=== PATIENT | male | born 1995 | race Caucasian/White ===

== ENCOUNTER 2018-05-03 14:39 | Emergency (ER) | payer SELFPAY ==
[2018-05-03] MEDS ORDERED: DIVALPROEX SODIUM 250 MG TABLET.DR PO ONE ×2 (15:17→15:20)
--- NOTE | 2018-05-03 15:19 | ER Document Report ---
ED Medical Screen (RME) - General Chief Complaint: Seizure Stated Complaint: POSSIBLE SEIZURE Time Seen by Provider: 05/03/18 15:10 Notes: 22-year-old male patient with history seizure disorder, has been out of his Depakote for just over a month. He got laid off from his job and has been unable to afford his medication. He was taking 3 Depakote extended release 250 mg tablets at bedtime on a daily basis. He had a seizure at home about 30 minutes prior to arrival. At this time he is a little drowsy with a mild headache. He denies injury with the seizure. TRAVEL OUTSIDE OF THE [place] IN LAST 30 DAYS: No - Related Data Allergies/Adverse Reactions: No Known Allergies Allergy (Unverified 05/03/18 14:41) Past Medical History - Social History Chew tobacco use (# tins/day): No Frequency of alcohol use: Occasional Drug Abuse: None Neurological Medical History: Reports: Hx Seizures Renal/ Medical History: Denies: Hx Peritoneal Dialysis Physical Exam - Vital signs Vitals: Temp Pulse Resp BP Pulse Ox 98.6 F 99 18 130/79 H 97 05/03/18 14:49 05/03/18 14:49 05/03/18 14:49 05/03/18 14:49 05/03/18 14:49 Course - Vital Signs Vital signs: Temp Pulse Resp BP Pulse Ox 98.6 F 99 18 130/79 H 97 05/03/18 14:49 05/03/18 14:49 05/03/18 14:49 05/03/18 14:49 05/03/18 14:49
[2018-05-03] MEDS ORDERED: LORAZEPAM INJ 2 MG/1 ML VIAL IV ONE (16:31)
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
[2018-05-03 17:34] VITALS: BP 117/65
== END 2018-05-03 17:34 | disposition home or self-care (01) ==
LOC: ER 14:39
DX: R56.9 Unspecified convulsions (principal); T42.6X6A Underdosing of other antiepileptic and sedative-hypnotic drugs, initial encounter; Z91.128 Patient's intentional underdosing of medication regimen for other reason; Z91.14 Patient's other noncompliance with medication regimen; R25.3 Fasciculation; F17.210 Nicotine dependence, cigarettes, uncomplicated
CPT/HCPCS: 99284; 96374; J2060

== ENCOUNTER 2018-05-06 09:44 | Emergency (ER) | payer SELFPAY ==
[2018-05-06 09:50] VITALS: BP 137/86
[2018-05-06] MEDS ORDERED: DEXAMETHASONE SOD PHOS INJ 10 MG/1 ML VIAL IM ONE (09:55)
[2018-05-06] MEDS ORDERED: VALPROATE SODIUM SYRUP 250 MG/5 ML UDCUP PO ONE (09:56)
--- NOTE | 2018-05-06 09:57 | ER Document Report ---
ED Medical Screen (RME) - General Chief Complaint: Fever Stated Complaint: FEVER Time Seen by Provider: 05/06/18 09:55 TRAVEL OUTSIDE OF THE [place] IN LAST 30 DAYS: No - HPI Notes: 05/06/18 09:56 Sore throat fever since Sunday last seizure was Sunday on Depakote 250 states unable to take this at this time because of the pain in the throat states possible sick contacts no recent antibiotics - Related Data Allergies/Adverse Reactions: No Known Allergies Allergy (Verified 05/06/18 09:47) Past Medical History - Social History Frequency of alcohol use: None Drug Abuse: None Neurological Medical History: Reports: Hx Seizures Renal/ Medical History: Denies: Hx Peritoneal Dialysis Review of Systems - Review of Systems Constitutional: Fever Neurological/Psychological: Seizure Physical Exam - Vital signs Vitals: Temp Pulse Resp BP Pulse Ox 99.4 F 100 16 137/86 H 98 05/06/18 09:49 05/06/18 09:49 05/06/18 09:49 05/06/18 09:49 05/06/18 09:49 - Respiratory Respiratory status: No respiratory distress Chest status: Nontender Breath sounds: Normal Chest palpation: Normal - Cardiovascular Rhythm: Regular Heart sounds: Normal auscultation Course - Vital Signs Vital signs: Temp Pulse Resp BP Pulse Ox 99.4 F 100 16 137/86 H 98 05/06/18 09:49 05/06/18 09:49 05/06/18 09:49 05/06/18 09:49 05/06/18 09:49
--- NOTE | 2018-05-06 10:20 | ER Document Report ---
ED General - General Chief Complaint: Fever Stated Complaint: FEVER Time Seen by Provider: 05/06/18 09:55 Notes: Patient is a 22-year-old male with seizure disorder that presents to the emergency department for chief complaint of sore throat and fever. Patient reports has been having a sore throat for approximately 3 days, he has been unable to take down much liquid or food because of it. He is also not been taking his antiepileptic medication Depakote that he is on he did have a seizure this past Sunday and was seen in the emergency department at that time. He states that he has not been pates that is why he does not have his medication. He has not had any further seizures from his discharge. His main complaint today is his sore throat. Reports a fever of 103 F at home, but is currently afebrile in the emergency department. Denies noting any cough, chest pain, shortness of breath, nausea or vomiting. Past Medical History: Epilepsy Past Surgical History: Tonsillectomy Social History: Admits to tobacco use, rare alcohol use, denies illicit drug use Family History: Reviewed and noncontributory for presenting illness Allergies: Reviewed, see documented allergy list. REVIEW OF SYSTEMS: Unless otherwise stated in this report the patient's positive and negative responses for review of systems for constitutional, eyes, ENT, cardiovascular, respiratory, gastrointestinal, neurological, genitourinary, musculoskeletal, and integumentary systems and related systems to the presenting problem are either as stated in the HPI or were not pertinent or were negative for the symptoms and/or complaints related to the presenting medical problem. PHYSICAL EXAMINATION: Vital signs reviewed, nursing noted reviewed. GENERAL: Well-appearing, well-nourished and in no acute distress. HEAD: Atraumatic, normocephalic. EYES: Eyes appear normal, extraocular movements intact, sclera anicteric, conjunctiva are normal. ENT: nares patent, tonsils are absent, palatal petechiae noted, and posterior oropharynx erythema. Moist mucous membranes. NECK: Normal range of motion, bilateral anterior tender cervical lymphadenopathy LUNGS: Breath sounds clear to auscultation bilaterally and equal. No wheezes rales or rhonchi. HEART: Regular rate and rhythm without murmurs ABDOMEN: Soft, nontender, normoactive bowel sounds. No rebound, guarding, or rigidity. No masses appreciated. EXTREMITIES: Nontender, good range of motion, no pitting or edema. NEUROLOGICAL: No focal neurological deficits. Moves all extremities spontaneously Motor and sensory grossly intact on exam. PSYCH: Normal mood, normal affect. SKIN: Warm, Dry, normal turgor, no rashes or lesions noted on exposed skin TRAVEL OUTSIDE OF THE [place] IN LAST 30 DAYS: No - Related Data Allergies/Adverse Reactions: No Known Allergies Allergy (Verified 05/06/18 09:47) Past Medical History - Social History Smoking Status: Current Every Day Smoker Frequency of alcohol use: None Drug Abuse: None Family History: Reviewed & Not Pertinent Patient has suicidal ideation: No Patient has homicidal ideation: No Neurological Medical History: Reports: Hx Seizures Renal/ Medical History: Denies: Hx Peritoneal Dialysis Physical Exam - Vital signs Vitals: Temp Pulse Resp BP Pulse Ox 99.4 F 100 16 137/86 H 98 05/06/18 09:49 05/06/18 09:49 10 09:49 05/06/18 09:49 05/06/18 09:49 Course - Re-evaluation Re-evalutation: Patient seen and examined vital signs reviewed. Laboratory data and imaging were ordered as appropriate for the patient's presenting symptoms and complaint, with consideration of any critical or life threatening conditions that may be associated with their obtained history and exam as noted above. Patient was treated with IM Decadron, and given a dose of his home Depakote Results were reviewed when available and demonstrated unremarkable CBC and BMP , Depakote level was undetectable, mono negative, strep negative and sent for culture The patient was re-evaluated and was stable, advised Chloraseptic [place], and advised the patient will follow up with him if his culture is positive, and prescribe antibiotics, he was educated that he needs to get his prescription filled for his Depakote, to follow-up with his primary care physician as well. Evaluation was most consistent with acute pharyngitis Results were discussed with the patient at this point, after careful consideration I feel that that patient can be discharged from the emergency department, the patient was educated treatments and reasons to return to the emergency department based on their presumed diagnosis as noted above, they were advised to followup with a primary care physician in 2-3 days. Patient was agreeable to plan of care. *Note is created using voice recognition software and may contain spelling, syntax or grammatical errors. Laboratory 05/06/18 05/06/18 05/06/18 09:55 10:03 10:03 WBC 6.5 RBC 5.17 Hgb 16.6 Hct 48.0 MCV 93 MCH 32.0 MCHC 34.5 RDW 12.2 Plt Count 158 Seg Neutrophils % 71.3 Lymphocytes % 14.1 Monocytes % 13.1 H Eosinophils % 1.3 Basophils % 0.2 Absolute Neutrophils 4.6 Absolute Lymphocytes 0.9 Absolute Monocytes 0.8 Absolute Eosinophils 0.1 Absolute Basophils 0.0 Sodium 143.0 Potassium 4.0 Chloride 102 Carbon Dioxide 28 Anion Gap 13 BUN 13 Creatinine 1.14 Est GFR ( Amer) > 60 Est GFR (Non-Af Amer) > 60 Glucose 120 H Calcium 10.2 Valproic Acid < 10.0 L Monotest Group A Strep Rapid NEGATIVE 05/06/18 10:03 WBC RBC Hgb Hct MCV MCH MCHC RDW Plt Count Seg Neutrophils % Lymphocytes % Monocytes % Eosinophils % Basophils % Absolute Neutrophils Absolute Lymphocytes Absolute Monocytes Absolute Eosinophils Absolute Basophils Sodium Potassium Chloride Carbon Dioxide Anion Gap BUN Creatinine Est GFR ( Amer) Est GFR (Non-Af Amer) Glucose Calcium Valproic Acid Monotest NEGATIVE Group A Strep Rapid - Vital Signs Vital signs: Temp Pulse Resp BP Pulse Ox 99.4 F 100 16 137/86 H 98 05/06/18 09:49 05/06/18 09:49 05/06/18 09:49 05/06/18 09:49 05/06/18 09:49 - Laboratory Result Diagrams: 05/06/18 10:03 05/06/18 10:03 Laboratory results interpreted by me: 05/06/18 05/06/18 10:03 10:03 Monocytes % 13.1 H Glucose 120 H Valproic Acid < 10.0 L Discharge - Discharge Clinical Impression: Acute pharyngitis Qualifiers: Pharyngitis/tonsillitis etiology: unspecified etiology Qualified Code(s): J02.9 - Acute pharyngitis, unspecified Condition: Stable Disposition: HOME, SELF-CARE Additional Instructions: Please return to the emergency department if you have any worsening, or concern of your symptoms. Please return to the emergency department if you develop chest pain, difficulty breathing, severe abdominal pain, or ongoing vomiting. Please follow-up with your primary care physician in 2-3 days and any other recommended physicians. If prescribed, take all medications as directed. If you have any questions or concerns do not hesitate to return the emergency department for evaluation. Sore Throat Sore throats may be caused by viruses, bacteria, or fungi. Most are due to a virus, and must get better on their own. Bacterial sore throats, particularly those due to "strep," need treatment with antibiotics. If an antibiotic is prescribed, be sure to take the medication for a full 10 days. Failure to take the antibiotic can result in complications such as rheumatic fever. Sometimes, an injection of antibiotics is given instead of pills or liquid. This single "shot" is equal in effectiveness to the oral medication. To relieve symptoms, take acetaminophen for pain. Sip clear liquids frequently, or eat popsicles or ice chips. Anesthetic sprays or lozenges may help. Make sure the air in the room is not too dry. Avoid using decongestants or antihistamines. Call the doctor if there is no improvement in two days, or if you have difficulty breathing, increasing throat pain, high fever, rash, or frequent vomiting. Prescriptions: Benzonatate [Tessalon Perle 100 mg Capsule] 100 mg PO Q8HP PRN #15 cap PRN Reason: Forms: Return to Work Referrals: [facility] [Provider Group] - Follow up in 3-5 days (or your primary care. ) [facility] [Provider Group] - Follow up in 3-5 days
[2018-05-06 10:29] LABS: ABSOLUTE EOSINOPHILS # (AUTO) 0.1 10^3/uL (0.0-0.6); ABSOLUTE LYMPHOCYTES (AUTO) 0.9 10^3/uL (0.5-4.7); ABSOLUTE MONOCYTES (AUTO) 0.8 10^3/uL (0.1-1.4); ABSOLUTE NEUT (AUTO) 4.6 10^3/uL (1.7-8.2); BASOPHILS % (AUTO) 0.2 % (0-2); EOSINOPHILS % (AUTO) 1.3 % (0-6); HEMOGLOBIN 16.6 g/dL (13.5-17.0); LYMPHOCYTES % (AUTO) 14.1 % (13-45); MEAN CORPUSCULAR HGB CONC 34.5 g/dL (32.0-36.0); MEAN CORPUSCULAR VOLUME 93 fl (80-97); MONOCYTES % (AUTO) 13.1 % (3-13); PLATELET COUNT 158 10^3/uL (150-450); RED BLOOD COUNT 5.17 10^6/uL (4.35-5.55); RED CELL DISTRIBUTION WIDTH 12.2 % (11.5-14.0); SEGMENTED NEUTROPHILS % (AUTO) 71.3 % (42-78); TOTAL CELLS COUNTED % (AUTO) 100 %; WHITE BLOOD COUNT 6.5 10^3/uL (4.0-10.5)
[2018-05-06 10:42] LABS: ANION GAP 13 (5-19); BLOOD UREA NITROGEN 13 mg/dL (7-20); CALCIUM 10.2 mg/dL (8.4-10.2); CARBON DIOXIDE 28 mmol/L (22-30); CHLORIDE 102 mmol/L (98-107); GLUCOSE 120 mg/dL (75-110)
== END 2018-05-06 11:04 | disposition home or self-care (01) ==
LOC: ER 09:44
DX: J02.9 Acute pharyngitis, unspecified (principal); G40.909 Epilepsy, unspecified, not intractable, without status epilepticus; T42.6X6A Underdosing of other antiepileptic and sedative-hypnotic drugs, initial encounter; Z91.128 Patient's intentional underdosing of medication regimen for other reason; Z91.14 Patient's other noncompliance with medication regimen; F17.200 Nicotine dependence, unspecified, uncomplicated
CPT/HCPCS: 99283; 96372; 36415; 87070; 87880; 85025; 86308; 80048; 80164; J1100

== ENCOUNTER 2018-05-07 16:07 | Emergency (ER) | payer SELFPAY ==
[2018-05-07] MEDS ORDERED: MAG HYDROX/AL HYDROX/SIMETH SUSP 30 ML UDCUP PO ONE (16:51)
[2018-05-07] MEDS ORDERED: METOCLOPRAMIDE HCL ORAL SOLN 10 MG/10 ML UDCUP PO ONE (16:51)
[2018-05-07] MEDS ORDERED: LIDOCAINE 2% VISCOUS SOLN 20 ML UDCUP PO ONE (16:51)
--- NOTE | 2018-05-07 16:56 | ER Document Report ---
HPI - HPI Pain Level: 5 Notes: Patient is a 22-year-old male with a history of seizures who presents to the ED complaining of worsening sore throat from yesterday's visit with subjective fevers. Patient states that every time he swallows he feels like his throat is closing and he has trouble breathing with it. Patient states that he tried the [id number] medicine with minimal relief. He was evaluated yesterday and had an unremarkable workup at that time. Patient is requesting imaging. Denies any drug allergies. He has a surgical history of a tonsillectomy. Denies any headache, head injury, neck pain, changes in vision/speech/mentation/ hearing, URI, chest pain, palpitations, syncope, cough, shortness of breath, wheeze, dyspnea, abdominal pain, nausea/vomiting/diarrhea, urinary retention, dysuria, hematuria, or rash. - ROS Systems Reviewed and Negative: Yes All other systems reviewed and negative Past Medical History - Social History Smoking Status: Unknown if Ever Smoked Family History: Reviewed & Not Pertinent Neurological Medical History: Reports: Hx Seizures Renal/ Medical History: Denies: Hx Peritoneal Dialysis Vertical Provider Document - CONSTITUTIONAL Agree With Documented VS: Yes Notes: PHYSICAL EXAMINATION: GENERAL: Well-appearing, well-nourished and in no acute distress. A&Ox4. Answers questions appropriately. Moves comfortably w/o notable distress HEAD: Atraumatic, normocephalic. EYES: Pupils equal round and reactive to light, extraocular movements intact, sclera anicteric, conjunctiva are normal. ENT: EAC clear b/l. TM's intact b/l without erythema, fluid, or perforation. Nares patent and with clear discharge. oropharynx mild erythema without exudates. tonsils absent. No palatine shift. Uvula midline. No tongue protrusion. No drooling, hoarseness, or airway compromise. Moist mucous membranes. No sinus tenderness. NECK: Normal range of motion, supple with tender small ant. cerv. chain lymphadenopathy. No rigidity/meningismus. LUNGS: Breath sounds clear to auscultation bilaterally and equal. No wheezes rales or rhonchi. No retractions HEART: Regular rate and rhythm without murmurs, rubs, gallops. ABDOMEN: Soft, nontender, nondistended abdomen. No guarding, no rebound. No masses appreciated. Normal bowel sounds present. No CVA tenderness bilaterally. No hepatosplenomegaly. NEUROLOGICAL: Normal speech, normal gait. Normal sensory, motor exams PSYCH: Normal mood, normal affect. SKIN: Warm, Dry, normal turgor, no rashes or lesions noted. - INFECTION CONTROL TRAVEL OUTSIDE OF THE [place] IN LAST 30 DAYS: No Course - Re-evaluation Re-evalutation: 05/07/18 17:14 Due to patient bounce-back: Dr. Kidd was consulted who recommends CT soft tissue neck and possible antibiotic treatment thereafter for adenitis. GI cocktail, cbc, and bmp ordered. Pt in agreement with plan. 05/07/18 19:11 Patient is an afebrile, well-hydrated, 22-year-old male who presents to the ED with adenitis and acute pharyngitis. Vitals are acceptable without any significant tachycardia, tachypnea, or hypoxia. PE is otherwise unremarkable. Patient is nontoxic-appearing and is tolerating p.o. without any difficulties. Throat culture from yesterday shows preliminary of normal rico. CBC, CMP unremarkable. CT scan of the neck was unremarkable for any acute pathology. GI cocktail did help with his symptoms. No other labs or imaging warranted at this time. Low suspicion for any meningitis, sepsis, peritonsillar/pharyngeal abscess, respiratory compromise, Hector's, or other emergent systemic condition at this time. Patient is aware this condition can change from initial presentation and he needs to monitor symptoms closely. I will send him home with a prescription for amoxicillin for the adenitis as reviewed with Dr Kidd as well as magic mouthwash. Conservative measures otherwise for symptoms. Recheck with your PCM in 2-3 days. Return to the ED with any worsening/concerning symptoms otherwise as reviewed in discharge. Patient is in agreement. - Vital Signs Vital signs: Temp Pulse Resp BP Pulse Ox 99.8 F 80 16 131/75 H 100 05/07/18 16:16 05/07/18 16:16 05/07/18 16:16 05/07/18 16:16 05/07/18 16:16 - Laboratory Result Diagrams: 05/07/18 17:47 05/07/18 17:47 Discharge - Discharge Clinical Impression: Adenitis, acute Acute pharyngitis Qualifiers: Pharyngitis/tonsillitis etiology: unspecified etiology Qualified Code(s): J02.9 - Acute pharyngitis, unspecified Condition: Stable Disposition: HOME, SELF-CARE Instructions: Sore Throat ([facility]) Additional Instructions: Maintain adequate fluid intake Take meds as directed Salt water gargles, throat sprays, mouthwash rinse, peroxide gargles tylenol/ibuprofen as needed New toothbrush tomorrow evening over the counter cold medication as needed for symptoms F/u: with your PCM in 2-3 days for a recheck Consider consult with ENT for ongoing/worsening symptoms Return to the ED with any fever, worsening pain, chest pain, neck pain/stiffness , shortness of breath, cough, drooling, trouble swallowing/breathing, abdominal pain, n/v/d, rash, or worsening/concerning symptoms otherwise. Prescriptions: Amoxicillin 1 tab PO TID #30 tab Nystatin/Dexameth/Diphen [Magic Mouthwash ([facility] Formula) Susp] 5 ml PO QID #120 ml Forms: Elevated Blood Pressure Referrals: JULIA DELACRUZ DO [ASSOCIATE] - Follow up as needed
[2018-05-07 17:58] LABS: ABSOLUTE LYMPHOCYTES (AUTO) 1.4 10^3/uL (0.5-4.7); ABSOLUTE MONOCYTES (AUTO) 0.8 10^3/uL (0.1-1.4); ABSOLUTE NEUT (AUTO) 4.1 10^3/uL (1.7-8.2); BASOPHILS % (AUTO) 0.4 % (0-2); EOSINOPHILS % (AUTO) 0.7 % (0-6); HEMATOCRIT 47.8 % (37.9-51.0); HEMOGLOBIN 16.4 g/dL (13.5-17.0); LYMPHOCYTES % (AUTO) 21.3 % (13-45); MEAN CORPUSCULAR HEMOGLOBIN 31.9 pg (27.0-33.4); MEAN CORPUSCULAR HGB CONC 34.4 g/dL (32.0-36.0); MEAN CORPUSCULAR VOLUME 93 fl (80-97); MONOCYTES % (AUTO) 12.7 % (3-13); PLATELET COUNT 178 10^3/uL (150-450); RED BLOOD COUNT 5.16 10^6/uL (4.35-5.55); RED CELL DISTRIBUTION WIDTH 12.2 % (11.5-14.0); SEGMENTED NEUTROPHILS % (AUTO) 64.9 % (42-78); TOTAL CELLS COUNTED % (AUTO) 100 %; WHITE BLOOD COUNT 6.4 10^3/uL (4.0-10.5)
[2018-05-07 18:17] LABS: ANION GAP 10 (5-19); BLOOD UREA NITROGEN 18 mg/dL (7-20); CALCIUM 10.6 mg/dL (8.4-10.2); CARBON DIOXIDE 30 mmol/L (22-30); CHLORIDE 103 mmol/L (98-107); GLUCOSE 89 mg/dL (75-110); SODIUM 143.1 mmol/L (137-145)
--- NOTE | 2018-05-07 19:04 | RADIOLOGY REPORT (SQ) ---
EXAM DESCRIPTION: CT SOFT TISSUE NECK WITH COMPLETED DATE/TIME: 05/07/2018 6:52 pm REASON FOR STUDY: sore throat, c/o swelling/pain COMPARISON: None. TECHNIQUE: Post IV contrasted scanning from skull base through lung apices with review of bone, soft tissue and lung windows. Reconstructed coronal and sagittal MPR images reviewed. All images stored on PACS. All CT scanners at this facility use dose modulation, iterative reconstruction, and/or weight based d osing when appropriate to reduce radiation dose to as low as reasonably achievable (ALARA). [facility]: Dose Right [facility]: CareDose [facility]: Dose Right [facility]: Teradose 4D [facility]: [employer] CONTRAST TYPE AND DOSE: contrast/concentration: Isovue mg/ml; Total Contrast Delivered: 75.0 ml; To simeon Saline Delivered: 45.0 ml RENAL FUNCTION: BUN 13 creatinine 1.14 RADIATION DOSE: . LIMITATIONS: None. FINDINGS: SKULL BASE: Intact. MAJOR SALIVARY GLANDS: No solid or cystic masses. No inflammatory changes. LYMPHADENOPATHY: No adenopathy. MUCOSAL MASSES OR ASYMMETRY: No mucosal masses or asymmetry. LARYNX/CORDS: No abnormal findings. VASCULAR STRUCTURES: The major vessels are patent. LUNG APICES: Clear. BONES: Intact. THYROID: Normal size. No masses. PARANASAL SINUSES: Clear. OTHER: No other significant finding. IMPRESSION: NO SIGNIFICANT FINDING IN THE SOFT TISSUES OF THE NECK. TECHNICAL DOCUMENTATION: JOB ID: [id number] Quality ID # [id number]: Final reports with documentation of one or more dose reduction techniques (e.g., Au tomated exposure control, adjustment of the mA and/or kV according to patient size, use of iterative reconstruction technique) 2010 [employer]- All Rights Reserved Reading location - IP/workstation name: [email or web address]
[2018-05-07 20:30] VITALS: BP 108/67
== END 2018-05-07 20:30 | disposition home or self-care (01) ==
LOC: ER 16:07
DX: J02.9 Acute pharyngitis, unspecified (principal); L04.9 Acute lymphadenitis, unspecified; R06.00 Dyspnea, unspecified; Z90.89 Acquired absence of other organs
CPT/HCPCS: 99283; 36415; 85025; 80048; 70491; J3490

== ENCOUNTER 2019-03-11 19:11 | Emergency (ER) | payer SELFPAY ==
[2019-03-11 19:26] VITALS: BP 128/77
[2019-03-11] MEDS ORDERED: DIPH/PERTUSS(ACELL)/TETANUS VAC/PF 0.5 ML SYR (>=10YO) IM ONE (20:22)
[2019-03-11] MEDS ORDERED: LIDOCAINE 1% INJ-PF (10 MG/ML) 30 ML SDV INJ ONE (20:22)
[2019-03-11] MEDS ORDERED: CEPHALEXIN 500 MG CAPSULE PO ONE (20:22)
--- NOTE | 2019-03-11 20:24 | ER Document Report ---
HPI - HPI Patient complains to provider of: thumb lac Time Seen by Provider: 03/11/19 20:15 Onset: Just prior to arrival Onset/Duration: Sudden Quality of pain: Achy Pain Level: 3 Context: Patient reports working on a vehicle automatic window. Patient reports after ta bob out the last screw the window dropped causing the gear box to cut his left thumb. Patient is right-hand dominant. Patient is uncertain when his last tetanus shot was. Associated Symptoms: Other - Thumb laceration. denies: Fever, Nausea Exacerbated by: Movement Relieved by: Denies Similar symptoms previously: Yes Recently seen / treated by doctor: No - ROS ROS below otherwise negative: Yes Systems Reviewed and Negative: Yes All other systems reviewed and negative - CONSTITUTIONAL Constitutional: DENIES: Fever - NEURO Neurology: DENIES: Weakness - GASTROINTESTINAL Gastrointestinal: DENIES: Nausea - MUSCULOSKELETAL Musculoskeletal: REPORTS: Extremity pain - DERM Skin Color: Normal Skin Problems: Laceration Past Medical History - General Information source: Patient - Social History Smoking Status: Current Every Day Smoker Smoking Education Provided: Yes Frequency of alcohol use: Occasional Drug Abuse: None Occupation: [employer] Family History: Reviewed & Not Pertinent Neurological Medical History: Reports: Hx Seizures Renal/ Medical History: Denies: Hx Peritoneal Dialysis Past Surgical History: Reports: Hx Tonsillectomy Vertical Provider Document - CONSTITUTIONAL Agree With Documented VS: Yes Exam Limitations: No Limitations General Appearance: WD/WN, No Apparent Distress - INFECTION CONTROL TRAVEL OUTSIDE OF THE [place] IN LAST 30 DAYS: No - HEENT HEENT: Atraumatic, Normocephalic - NECK Neck: Normal Inspection - RESPIRATORY Respiratory: No Respiratory Distress - CARDIOVASCULAR Pulses: Normal: Radial - MUSCULOSKELETAL/EXTREMETIES Musculoskeletal/Extremeties: AMARJIT, FROM Notes: No tendon deficit against active range of motion - NEURO Level of Consciousness: Awake, Alert, Appropriate Motor/Sensory: No Motor Deficit - DERM Integumentary: Warm, Dry, Laceration - 1.5 cm laceration to ulnar aspect of left thumb where MCP joint Course - Vital Signs Vital signs: Temp Pulse Resp BP Pulse Ox 98.0 F 91 18 128/77 H 96 03/11/19 19:23 03/11/19 19:23 03/11/19 19:23 03/11/19 19:23 03/11/19 19:23 Procedures - Laceration/Wound Repair Left Thumb Wound length (cm): 1.5 Wound's Depth, Shape: Linear Laceration pre-procedure: Shur-Clens applied Anesthetic type: 1% Lidocaine Volume Anesthetic (mLs): 1 Wound explored: Clean Wound Repaired With: Sutures Suture Size/Type: 5:0, Nylon Number of Sutures: 3 Post-procedure wound care: Sterile dressing applied Post-procedure NV exam normal: Yes Complications: No Hands back picture: 1 - lac Discharge - Discharge Clinical Impression: Laceration of left thumb Qualifiers: Encounter type: initial encounter Damage to nail status: without damage Foreign body presence: without foreign body Qualified Code(s): S61.012A - Laceration without foreign body of left thumb without damage to nail, initial encounter Disposition: HOME, SELF-CARE Instructions: Laceration Care ([facility]), Prophylactic Antibiotic ([facility]), Tetanus Immunization Given ([facility]) Additional Instructions: Return immediately for any new or worsening symptoms Followup with your primary care provider, call tomorrow to make a followup appointment Suture removal in 10 days Prescriptions: Cephalexin Monohydrate [Keflex 500 mg Capsule] 500 mg PO Q6H 5 Days capsule Forms: Smoking Cessation Education Referrals: CRISTINE RUSSO DO [ACTIVE STAFF] - Follow up as needed
== END 2019-03-11 21:08 | disposition home or self-care (01) ==
LOC: ER 19:11
DX: S61.012A Laceration without foreign body of left thumb without damage to nail, initial encounter (principal); W45.8XXA Other foreign body or object entering through skin, initial encounter; Y93.89 Activity, other specified; F17.200 Nicotine dependence, unspecified, uncomplicated
CPT/HCPCS: 90471; 90715; 99282

== ENCOUNTER → 2019-04-26 | Emergency (ER) | payer SELFPAY ==
[~2019-04-26] MED LIST: BUPIVACAINE HCL 0.5 % INJ/PF 30 ML SDV INJ ONE; LIDOCAINE 1% INJ (10 MG/ML) 10 ML MDV INJ ONE; NAPROXEN 250 MG TABLET PO ONE; PENICILLIN V POTASSIUM 500 MG TABLET PO ONE
--- NOTE | 2019-04-26 19:24 | ER Document Report ---
HPI - HPI Patient complains to provider of: dental pain Time Seen by Provider: 04/26/19 19:13 Onset: This morning Onset/Duration: Sudden, Waxing and waning Quality of pain: Achy, Throbbing Severity: Moderate Pain Level: 3 Context: This is a 23-year-old male with the listed pmh presenting with toothache. Patient states this has been ongoing for about 1 day. endorses hx of breaking this tooth accidentally a while back and has increased pain today when he was eating and bit down on an overcooked crunchy faroese allen several hrs ago. Patient describes the pain in the mouth as a 7 out of 10, sharp, aching, is located in the left lower posterior part of the mouth. Patient denies any difficulty swallowing. Patient denies any difficulty handling secretions. Patient states normal appetite and fluid intake. Patient denies any fever or chills. Patient denies any radiation of pain into the neck. Patient states that chewing, and hot and cold make the pain worse. Palpation makes pain worse and rest makes it better. Patient denies any difficulty breathing. Patient denies all complaints at this time. Patient is here for pain control. no recent abx or steroids. no hx of diabetes or asthma. no recent illness. Associated Symptoms: denies: Chest pain, Fever, Shortness of breath Exacerbated by: Food Relieved by: Remaining still Similar symptoms previously: Yes Recently seen / treated by doctor: No - ROS Systems Reviewed and Negative: Yes All other systems reviewed and negative - to include 10 systems, unless mentioned in the hpi Past Medical History - General Information source: Patient, Friend - Social History Smoking Status: Current Every Day Smoker Chew tobacco use (# tins/day): No Frequency of alcohol use: Occasional Drug Abuse: None Lives with: Spouse/Significant other Family History: Reviewed & Not Pertinent Patient has suicidal ideation: No Patient has homicidal ideation: No Neurological Medical History: Reports: Hx Seizures - on depakote Endocrine Medical History: Denies: Hx Diabetes Mellitus Type 1, Hx Diabetes Mellitus Type 2 Renal/ Medical History: Denies: Hx Peritoneal Dialysis Infectious Medical History: Denies: Hx HIV Past Surgical History: Reports: Hx Tonsillectomy - Immunizations Immunizations up to date: Yes Hx Diphtheria, Pertussis, Tetanus Vaccination: Yes Vertical Provider Document - CONSTITUTIONAL Agree With Documented VS: Yes Exam Limitations: No Limitations General Appearance: WD/WN Notes: GENERAL_APPEARANCE: well_nourished, alert, cooperative, no_acute_distress, no_obvious_discomfort. pleasant, young thin white male in the , accompanied by female significant other, speaking in full sentences, nontoxic, in no sign of resp distress, easily sitting up, appears uncomfortable when he bites down on his left back molar or when the same tooth is palpated. otherwise nontoxic VITALS:reviewed, see vital signs table. HEAD: normocephalic, atraumatic. no swelling or ttp EARS: normal TMs and canals bilat. no sign of mastoiditis. no drainage or bleeding. no hemotympanum EYES: PERRL, EOMI, conjunctiva_clear. NOSE: no_nasal_discharge or epistaxis. MOUTH: no decreased moisture. there are multiple dental caries noted. Tooth # 18 is ttp, tooth #17 is starting to erupt through the gum line, there is scant surrounding inflammation on top of where the tooth should be erupting secondary to the pts endorsed picking and messing with it, no fb or food bolus, no bleeding or drainage. no drainable fluid collection. no fluctuation. There is no other localized inflammation. There is no buccal swelling. there is tenderness to palpation over the noted tooth of concern. Uvula is midline. There is no trismus. There is no TMJ ttp/clicking produced. no tenderness over the sternocleidomastoid muscles. There is no tenderness over the thyroid cartilage. There is no submandibular hardness. no sign of ludwigs or mastoiditis. THROAT: no_pharyngeal_inflammation/exudate/hypertrophy, s/p remote/well healed T&A, no_airway_obstruction. no ulcers/lesions/thrush. no tongue/lip/facial swelling. no drooling, tripoding, voice change or stridor NECK: supple, no_neck_tenderness, no lymphadenopathy. full rom and full str ength. no meningeal signs. LUNGS: no_wheezing, ctab, (-)accessory muscle use, good air exchange bilateral. HEART: normal_rate, normal_rhythm, EXTREMITIES: strength 5/5 in all extremities, good pulses in all extremities, no swelling\tenderness in the extremities, no edema. full rom. normal gait. brisk cap refill. 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 NEURO: motor and sensation intact to light touch, cranial nerves 2-12 intact, cerebellar fxn intact SKIN: warm, dry, good_color, no_rash. no grossly visible overlying skin changes or signs of trauma. MENTAL_STATUS: speech_clear, oriented_X_3 , normal_affect, responds_appropriately to questions. - INFECTION CONTROL TRAVEL OUTSIDE OF THE [place]. IN LAST 30 DAYS: No Course - Re-evaluation Re-evalutation: 04/26/19 20:29 this patient presents with tooth ache at this time, could be from caries vs wisdom teeth eruption. Patient is completely neurovascularly intact. Patient in no acute distress. There is no emergency that is present at this time. There was mild localized gingival inflammation. There was no buccal swelling. Patient had no signs of active abscess at this time. Patient will be started on antibiotics and pain control. will dc with pcn vk and naproxen. Definitive treatment is a dentist, and this was thoroughly explained to the patient. he responded well to the dental block as listed below. Pt will follow up closely with dentist in 1-2 days. If the patient has any acute change or worsening or concerning sx patient will return to emergency Department immediately. Patient verbalized understanding and was in agreement with this treatment plan. Patient remained in stable condition and was very pleasant. vss. afebrile. well appearing. satting well on ra. according to the de drug database, pt has not received any narcotics in the last 2 yrs. On reexam, pt improved with tx listed. remained stable. nontoxic. well appearing. pain controlled. tolerating po. requesting to go home. Documentation achieved through voice recording which may lead to some occasional accidental typographical errors. Extensive efforts have been made to proof read documentation to make sure these are the least as possible. Category Date Time Status Bupivacaine HCl/Pf [Sensorcaine 0.5% Mpf Inj 30 ml Sdv] Med 04/26/19 19:58 Once 30 ml INJ NOW ONE Lidocaine HCl [Xylocaine 1% Inj (10 mg/1 ml) 10 ml Mdv] Med 04/26/19 19:58 Once 10 ml INJ NOW ONE DENTAL BLOCK PROCEDURE: The benefits, risks and possible complications of the procedure were explained to the pt who clearly understood and gave verbal consent without reservation. Left inferior alveolar nerve was anesthetized with 2mL of lidocaine 1% without epi and bupivacaine 0.5% without epi via a 27 gauge needle. Satisfactory anesthesia was achieved. Pt tolerated procedure well. No complications. - Vital Signs Vital signs: Temp Pulse Resp BP Pulse Ox 98.0 F 87 18 126/78 H 97 04/26/19 17:51 04/26/19 17:51 04/26/19 17:51 04/26/19 17:51 04/26/19 17:51 04/26/19 20:30 Temp Pulse Resp BP Pulse Ox 04/26/19 17:51 98.0 F 87 18 126/78 H 97 Temp Pulse Resp BP Pulse Ox 04/26/19 20:49 98.2 F 81 16 129/75 H 96 04/26/19 17:51 98.0 F 87 18 126/78 H 97 Discharge - Discharge Clinical Impression: Pain, dental, Eruption, teeth, disturbance of Condition: Good Disposition: HOME, SELF-CARE Instructions: [facility], Toothache ([facility]) Additional Instructions: Follow-up with dentist in 1 to 2 days. Return for any worsening symptoms. Do not take any other NSAIDs with the naproxen. Take the medication as prescribed. Prescriptions: Naproxen 500 mg PO BID PRN #20 tablet PRN Reason: Penicillin V Potassium [Penicillin Vk 500 mg Tablet] 500 mg PO QID 10 Days #40 tablet Forms: Return to Work
[2019-04-26 20:52] VITALS: BP 129/75
== END | disposition home or self-care (01) ==
LOC: ER 17:45
DX: K00.6 Disturbances in tooth eruption (principal); K02.9 Dental caries, unspecified; K05.10 Chronic gingivitis, plaque induced; K08.89 Other specified disorders of teeth and supporting structures; F17.200 Nicotine dependence, unspecified, uncomplicated
CPT/HCPCS: 99282; 96374; 96375; 64400; J3490

== ENCOUNTER 2019-08-04 10:12 | Emergency (ER) | payer SELFPAY ==
[2019-08-04 10:19] VITALS: BP 131/82
[2019-08-04] MEDS ORDERED: PREDNISONE 20 MG TABLET PO ONE (10:46)
[2019-08-04] MEDS ORDERED: VALACYCLOVIR HCL 500 MG TABLET PO ONE (10:46)
--- NOTE | 2019-08-04 10:50 | ER Document Report ---
HPI - HPI Patient complains to provider of: Facial weakness Time Seen by Provider: 08/04/19 10:32 Onset: This morning Onset/Duration: Gradual Pain Level: Denies Context: Patient presents complaining of numbness to the tip of his tongue for the past 4 days. Patient also states that his left side of his face has become weak and is drooping since 6:00 this morning. Patient denies any pain to the head ears or facial area. Patient denies any other weakness. Associated Symptoms: Other - Left side facial drooping. denies: Fever, Headache, Vomiting Exacerbated by: Denies Relieved by: Denies Similar symptoms previously: No Recently seen / treated by doctor: No - ROS ROS below otherwise negative: No Systems Reviewed and Negative: Yes All other systems reviewed and negative - CONSTITUTIONAL Constitutional: DENIES: Fever, Chills - EENT EENT: DENIES: Sore Throat, Ear Pain, Congestion Notes: Numbness to the tip of the tongue - GASTROINTESTINAL Gastrointestinal: DENIES: Nausea, Patient vomiting - DERM Skin Color: Normal Skin Problems: None Past Medical History - General Information source: Patient - Social History Smoking Status: Current Every Day Smoker Frequency of alcohol use: Occasional Drug Abuse: None 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 Lives with: Family Family History: Reviewed & Not Pertinent Patient has suicidal ideation: No Patient has homicidal ideation: No Neurological Medical History: Reports: Hx Seizures - on depakote Endocrine Medical History: Denies: Hx Diabetes Mellitus Type 1, Hx Diabetes Mellitus Type 2 Renal/ Medical History: Denies: Hx Peritoneal Dialysis Infectious Medical History: Denies: Hx HIV Past Surgical History: Reports: Hx Tonsillectomy - Immunizations Immunizations up to date: Yes Hx Diphtheria, Pertussis, Tetanus Vaccination: Yes Vertical Provider Document - CONSTITUTIONAL Agree With Documented VS: Yes Exam Limitations: No Limitations General Appearance: WD/WN, No Apparent Distress - INFECTION CONTROL TRAVEL OUTSIDE OF THE [place]. IN LAST 30 DAYS: No - HEENT HEENT: Atraumatic, Normocephalic - NECK Neck: Normal Inspection, Supple - RESPIRATORY Respiratory: Breath Sounds Normal - CARDIOVASCULAR Cardiovascular: Regular Rate, Regular Rhythm - MUSCULOSKELETAL/EXTREMETIES Musculoskeletal/Extremeties: MAEW, FROM - NEURO Level of Consciousness: Awake, Alert, Appropriate - DERM Integumentary: Warm, Dry - Paralysis of left side facial muscles, patient inability to completely close the left eye, lack of furrowing to the left side of the brow. Patient with altered sensation to the anterior third of the tongue. 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 Discussed with patient importance of using rewetting drops and protecting the left eye as he is not able to completely close and at times and does not blink as frequently. Patient encouraged to follow-up with his neurologist for recheck. No concern for CVA at this time. - Vital Signs Vital signs: Temp Pulse Resp BP Pulse Ox 97.6 F 90 18 131/82 H 98 08/04/19 10:18 08/04/19 10:18 08/04/19 10:18 08/04/19 10:18 08/04/19 10:18 Discharge - Discharge Clinical Impression: Allen's palsy Condition: Stable Disposition: HOME, SELF-CARE Instructions: Allen's Palsy ([facility]), Steroid Medication Additional Instructions: Return immediately for any new or worsening symptoms Followup with your primary care provider, call tomorrow to make a followup appointment Follow-up with your neurologist for recheck Prescriptions: Prednisone [Deltasone 20 mg Tablet] 3 tab PO DAILY 6 Days tablet Valacyclovir HCl [Valacyclovir] 1,000 mg PO TID #21 tablet Forms: Return to Work Referrals: [facility] [place] [Provider Group] - Follow up as needed
== END 2019-08-04 11:12 | disposition home or self-care (01) ==
LOC: ER 10:12
DX: G51.0 Bell's palsy (principal); F17.200 Nicotine dependence, unspecified, uncomplicated
CPT/HCPCS: 99283; J7512

== ENCOUNTER 2019-11-19 16:21 | Emergency (ER) | payer OTHER, BC ==
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
[2019-11-19 18:15] VITALS: BP 124/78
== END 2019-11-19 18:15 | disposition home or self-care (01) ==
LOC: ER 16:21
DX: M79.605 Pain in left leg (principal); M25.511 Pain in right shoulder; V87.7XXD Person injured in collision between other specified motor vehicles (traffic), subsequent encounter; F17.200 Nicotine dependence, unspecified, uncomplicated
CPT/HCPCS: 99281

== ENCOUNTER 2019-11-26 18:29 | Emergency (ER) | payer BC, OTHER ==
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
[2019-11-26] MEDS ORDERED: CEPHALEXIN 500 MG CAPSULE PO ONE (19:09)
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
[2019-11-26 20:42] VITALS: BP 117/65
== END 2019-11-26 20:35 | disposition home or self-care (01) ==
LOC: ER 18:29
DX: L03.116 Cellulitis of left lower limb (principal); M79.605 Pain in left leg; F17.210 Nicotine dependence, cigarettes, uncomplicated
CPT/HCPCS: 99283

== ENCOUNTER 2019-12-18 12:30 | Emergency (ER) | payer BC, OTHER ==
[2019-12-18] MEDS ORDERED: ONDANSETRON HCL INJ/PF 4 MG/2 ML SDV IV ONE (13:02)
[2019-12-18] MEDS ORDERED: NORMAL SALINE 1000 ML 1,000 ML IV ONE ×2 (13:02→13:39)
--- NOTE | 2019-12-18 13:06 | ER Document Report ---
Entered by ABDOULAYE WILLOUGHBY SCRIBE 12/18/19 1259 Acting as scribe for:MANISHA PORTER MD ED GI/ - General Chief Complaint: Nausea/Vomiting/Diarrhea Stated Complaint: NAUSEA,VOMITING,DIARRHEA Time Seen by Provider: 12/18/19 12:45 Mode of Arrival: Ambulatory Information source: Patient Notes: This 24 year old male patient presents to the emergency department today with complaints of nausea and vomiting with one episode of loose stool yesterday. Patient reports that yesterday while at work he had one episode of loose stool but has not had a bowel movement since then. Patient states that at 1:00 AM this morning he began vomiting and he has had a few episodes throughout the night but is now only dry heaving. Patient states he last urinated at around 9:30 AM tod ay. TRAVEL OUTSIDE OF THE [place] 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 Family History: Reviewed & Not Pertinent Neurological Medical History: Reports: Hx Seizures - on depakote Past Surgical History: Reports: Hx Tonsillectomy - Immunizations Immunizations up to date: Yes Hx Diphtheria, Pertussis, Tetanus Vaccination: Yes Review of Systems - Review of Systems Constitutional: No symptoms reported EENT: No symptoms reported Cardiovascular: No symptoms reported Respiratory: No symptoms reported Gastrointestinal: See HPI, Nausea, Vomiting Genitourinary: No symptoms reported Male Genitourinary: No symptoms reported Musculoskeletal: No symptoms reported Skin: No symptoms reported Hematologic/Lymphatic: No symptoms reported Neurological/Psychological: No symptoms reported -: Yes All other systems reviewed and negative Physical Exam - Vital signs Vitals: Temp Pulse Resp BP Pulse Ox 98.0 F 61 18 126/67 H 96 12/18/19 12:36 12/18/19 12:36 12/18/19 12:36 12/18/19 12:36 12/18/19 12:36 - Notes Notes: Physical Exam: General: Alert, appears well. HEENT: Normocephalic. Atraumatic. PERRL. Extraocular movements intact. Oropharynx clear. Dry mucous membranes. Neck: Supple. Non-tender. Respiratory: No respiratory distress. Clear and equal breath sounds bilaterally. Cardiovascular: Regular rate and rhythm. Abdominal: Normal Inspection. Non-tender. No distension. Normal Bowel Sounds. Back: No gross abnormalities. Extremities: Moves all four extremities. Upper extremities: Normal inspection. Normal ROM. Lower extremities: Normal inspection. No edema. Normal ROM. Neurological: Normal cognition. AAOx4. Normal speech. Psychological: Normal affect. Normal Mood. Skin: Warm. Dry. Normal color. Course - Re-evaluation Re-evalutation: 12/18/19 14:37 Patient is feeling much better after IV fluids and Zofran. He has had no vomiting since he came to the emergency room. He has not had diarrhea since yesterday. - Vital Signs Vital signs: Temp Pulse Resp BP Pulse Ox 98.0 F 61 18 126/67 H 96 12/18/19 12:56 12/18/19 12:36 12/18/19 12:36 12/18/19 12:36 12/18/19 12:36 - Laboratory Result Diagrams: 12/18/19 13:17 12/18/19 13:17 Laboratory results interpreted by me: 12/18/19 13:17 Plt Count 149 L Eos % (Auto) 6.4 H Discharge - Discharge Clinical Impression: Nausea, vomiting and diarrhea Condition: Stable Disposition: HOME, SELF-CARE Additional Instructions: Gastroenteritis: You most likely have gastroenteritis. This is an irritation of the stomach and intestinal tract. It's usually caused by a virus, but can also be caused by bacteria, toxins that cause food poisoning, or excessive alcohol intake. Symptoms may include fever, painful abdominal cramps, nausea, vomiting, and diarrhea. Start with small amounts (two to six ounces) of clear liquids (soft drinks, herb teas, broth, etc). Try to take fluids frequently even if you are vomiting, to prevent dehydration. When liquids are being consumed successfully, advance to small amounts of bland food (mashed potato, toast) for 6 - 12 hours. Gastroenteritis rarely requires medication. It goes away by itself. Use good handwashing so you don't spread germs. Wash underwear in very hot water. If symptoms are severe, talk to the doctor. Call your physician if blood appears in your vomitus or stool, if vomiting lasts longer than 24 hours, if the abdominal pain worsens or becomes localized to one area, or if you develop high fever. Drink small sips of cool clear liquids today. Take Zofran as dispensed if needed for nausea. Get plenty of rest and plenty of sleep. Follow-up with a local medical doctor if not improving. RETURN TO THE EMERGENCY ROOM IF ANY NEW OR WORSENING SYMPTOMS. Forms: Return to Work I personally performed the services described in the documentation, reviewed and edited the documentation which was dictated to the scribe in my presence, and it accurately records my words and actions.
[2019-12-18 13:54] LABS: ALBUMIN 4.6 g/dL (3.5-5.0); ALKALINE PHOSPHATASE 48 U/L (38-126); ANION GAP 7 (5-19); ASPARTATE AMINO TRANSFERASE 19 U/L (17-59); BILIRUBIN,TOTAL 0.5 mg/dL (0.2-1.3); BLOOD UREA NITROGEN 13 mg/dL (7-20); CALCIUM 9.8 mg/dL (8.4-10.2); CARBON DIOXIDE 29 mmol/L (22-30); CHLORIDE 103 mmol/L (98-107); GLUCOSE 93 mg/dL (75-110); POTASSIUM 4.6 mmol/L (3.6-5.0); TOTAL PROTEIN 7.5 g/dL (6.3-8.2)
[2019-12-18 14:14] LABS: ABSOLUTE EOSINOPHILS # (AUTO) 0.3 10^3/uL (0.0-0.6); ABSOLUTE LYMPHOCYTES (AUTO) 1.7 10^3/uL (0.5-4.7); ABSOLUTE MONOCYTES (AUTO) 0.5 10^3/uL (0.1-1.4); ABSOLUTE NEUT (AUTO) 2.3 10^3/uL (1.7-8.2); BASOPHILS % (AUTO) 0.5 % (0-2); EOSINOPHILS % (AUTO) 6.4 % (0-6); HEMATOCRIT 47.6 % (37.9-51.0); HEMOGLOBIN 16.2 g/dL (13.5-17.0); LYMPHOCYTES % (AUTO) 34.7 % (13-45); MEAN CORPUSCULAR HEMOGLOBIN 31.5 pg (27.0-33.4); MEAN CORPUSCULAR HGB CONC 33.9 g/dL (32.0-36.0); MEAN CORPUSCULAR VOLUME 93 fl (80-97); MONOCYTES % (AUTO) 9.9 % (3-13); PLATELET COUNT 149 10^3/uL (150-450); RED BLOOD COUNT 5.13 10^6/uL (4.35-5.55); RED CELL DISTRIBUTION WIDTH 12.7 % (11.5-14.0); SEGMENTED NEUTROPHILS % (AUTO) 48.5 % (42-78); TOTAL CELLS COUNTED % (AUTO) 100 %; WHITE BLOOD COUNT 4.8 10^3/uL (4.0-10.5)
[2019-12-18 14:22] LABS: APPEARANCE,URINE CLEAR; BILIRUBIN,URINE NEGATIVE (NEGATIVE); COLOR,URINE YELLOW; GLUCOSE, URINE NEGATIVE (NEGATIVE); KETONES,URINE NEGATIVE (NEGATIVE); LEUKOCYTE ESTERASE,URINE NEGATIVE (NEGATIVE); NITRITE,URINE NEGATIVE (NEGATIVE); PROTEIN,URINE NEGATIVE (NEGATIVE); URINE SPECIFIC GRAVITY 1.018; UROBILINOGEN,URINE NEGATIVE mg/dL (<2.0)
[2019-12-18] MEDS ORDERED: ONDANSETRON ODT 4 MG TAB (6 TAB/ER DISP) PO PRN (14:36)
[2019-12-18 14:53] VITALS: BP 121/68
== END 2019-12-18 14:55 | disposition home or self-care (01) ==
LOC: ER 12:30
DX: R11.2 Nausea with vomiting, unspecified (principal); R19.7 Diarrhea, unspecified; F17.210 Nicotine dependence, cigarettes, uncomplicated
CPT/HCPCS: 99284; 96361; 96374; 36415; 85025; 80053; 81001; J2405; J7030

== ENCOUNTER 2020-01-22 09:12 | Emergency (ER) | payer BC ==
--- NOTE | 2020-01-22 11:04 | ER Document Report ---
Entered by ABDOULAYE WILLOUGHBY SCRIBE 01/22/20 1035 Acting as scribe for:VIOLETTA SHEEHAN DO ED ENT - General Chief Complaint: Sore Throat Stated Complaint: SORE THROAT Notes: This 24-year-old male patient presents to the emergency department today with complaints of a sore throat. Patient states that he has had a sore throat for approximately 24 hours. 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 TRAVEL OUTSIDE OF THE [place] IN LAST 30 DAYS: No - Related Data Allergies/Adverse Reactions: No Known Allergies Allergy (Verified 04/26/19 18:51) Home Medications: Depakote. 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 Lives with: Family Family History: Reviewed & Not Pertinent Neurological Medical History: Reports: Hx Seizures - on depakote Infectious Medical History: Denies: Hx HIV Past Surgical History: Reports: Hx Tonsillectomy - Immunizations Immunizations up to date: Yes Hx Diphtheria, Pertussis, Tetanus Vaccination: Yes Review of Systems - Review of Systems Constitutional: No symptoms reported EENT: See HPI, Throat pain Cardiovascular: No symptoms reported Respiratory: No symptoms reported Gastrointestinal: No symptoms reported Genitourinary: No symptoms reported Male Genitourinary: No symptoms reported Musculoskeletal: No symptoms reported Skin: No symptoms reported Hematologic/Lymphatic: No symptoms reported Neurological/Psychological: No symptoms reported -: Yes All other systems reviewed and negative Physical Exam - Vital signs Vitals: Temp Pulse Resp BP Pulse Ox 97.8 F 68 20 125/77 98 01/22/20 09:19 01/22/20 09:19 01/22/20 09:19 01/22/20 09:19 01/22/20 09:19 - Notes Notes: Physical Exam: General: Alert, appears well. HEENT: Normocephalic. Atraumatic. PERRL. Extraocular movements intact. Posterior oropharynx erythema with tonsillar hypertrophy without exudate, airway is patent. TMs are clear and non-bulging bilaterally. Neck: Supple. Non-tender. Respiratory: No respiratory distress. Clear and equal breath sounds bilaterally. Cardiovascular: Regular rate and rhythm. Abdominal: Normal Inspection. Non-tender. No distension. Normal Bowel Sounds. Back: No gross abnormalities. Extremities: Moves all four extremities. Upper extremities: Normal inspection. Normal ROM. Lower extremities: Normal inspection. No edema. Normal ROM. Neurological: Normal cognition. AAOx4. Normal speech. Psychological: Normal affect. Normal Mood. Skin: Warm. Dry. Normal color. Course - Vital Signs Vital signs: Temp Pulse Resp BP Pulse Ox 98.2 F 72 18 122/78 98 01/22/20 11:46 01/22/20 11:46 01/22/20 11:46 01/22/20 11:46 01/22/20 11:46 Discharge - Discharge Clinical Impression: Strep pharyngitis Condition: Good Disposition: HOME, SELF-CARE Instructions: Acetaminophen, Fever ([facility]), Sore Throat ([facility]), Strep Throat ([facility]), Upper Respiratory Illness ([facility]) Additional Instructions: You have been screened for covid 19. Self isolate until the results of the covid test are negative. Please return here for shortness of breath, or any other problems or concerns. Prescriptions: Amoxicillin 1 tab PO TID #30 tab I personally performed the services described in the documentation, reviewed and edited the documentation which was dictated to the scribe in my presence, and it accurately records my words and actions.
[2020-01-22 11:47] VITALS: BP 122/78
== END 2020-01-22 11:48 | disposition home or self-care (01) ==
LOC: ER 09:12
DX: J02.0 Streptococcal pharyngitis (principal); F17.210 Nicotine dependence, cigarettes, uncomplicated; R56.9 Unspecified convulsions; Z79.899 Other long term (current) drug therapy; Z20.828 Contact with and (suspected) exposure to other viral communicable diseases
CPT/HCPCS: 99283; 36415; 87880; 87635; C9803

== ENCOUNTER 2020-04-15 08:37 | Emergency (ER) | payer BC ==
[2020-04-15] MEDS ORDERED: ONDANSETRON HCL INJ/PF 4 MG/2 ML SDV IV ONE (09:27)
[2020-04-15] MEDS ORDERED: NORMAL SALINE 1000 ML 1,000 ML IV ONE (09:27)
--- NOTE | 2020-04-15 09:40 | ER Document Report ---
ED GI/ - General Chief Complaint: Nausea/Vomiting/Diarrhea Stated Complaint: NAUSEA/VOMITING/DIARRHEA Notes: CHIEF COMPLAINT: Nausea vomiting diarrhea since yesterday HPI: 24-year-old male presenting with nausea vomiting diarrhea since yesterday with mild abdominal cramping just prior to onset of diarrhea. Has had 3 episodes of diarrhea today, 2 episodes yesterday one episode of vomiting yesterday nausea today but no vomiting. No definite fever. ROS: See HPI - all other systems were reviewed and are otherwise negative Constitutional: no fever Eyes: no drainage, no blurred vision ENT: no runny nose, no sore throat Cardiovascular: no chest pain Resp: no SOB, no cough GI: + vomiting, + diarrhea, + abdominal pain resolved : no dysuria Integumentary: no rash Allergy: no hives Musculoskeletal: no extremity pain or swelling Neurological: no numbness/tingling, no weakness MEDICATIONS: I agree with the patient medications as charted by the RN. ALLERGIES: I agree with the allergies as charted by the RN. PAST MEDICAL HISTORY/PAST SURGICAL HISTORY: Reviewed and agree as charted by RN. SOCIAL HISTORY: Reviewed and agree as charted by RN. FAMILY HISTORY: No significant familial comorbid conditions directly related to patient complaint EXAM: Reviewed vital signs as charted by RN. CONSTITUTIONAL: Alert and oriented and responds appropriately to questions. Well-appearing; well-nourished HEAD: Normocephalic; atraumatic EYES: PERRL; Conjunctivae clear, sclerae non-icteric ENT: normal nose; no rhinorrhea; moist mucous membranes; pharynx without lesions noted, no uvula edema or deviation, no tonsillar hypertrophy, phonation normal NECK: Supple without meningismus; non-tender; no cervical lymphadenopathy, no masses CARD: RRR; no murmurs, no clicks, no rubs, no gallops; symmetric distal pulses RESP: Normal chest excursion without splinting or tachypnea; breath sounds clear and equal bilaterally; no wheezes, no rhonchi, no rales, pulse oximetry 98% on room air not hypoxic ABD/GI: Normal bowel sounds; non-distended; soft, no reproducible abdominal pain on exam at this time, no rebound, no guarding; no palpable organomegaly or masses. BACK: The back appears normal and is non-tender to palpation, there is no CVA tenderness EXT: Normal ROM in all joints; non-tender to palpation; no cyanosis, no effusions, no edema SKIN: Normal color for age and race; warm; dry; good turgor; no acute lesions noted NEURO: Moves all extremities equally; Motor and sensory function intact PSYCH: The patient's mood and manner are appropriate. Grooming and personal hygiene are appropriate. MDM: 24-year-old male nausea vomiting diarrhea since yesterday. Will cover test patient. Will check baseline screening labs treat nausea. No indication for imaging at this time as he has had no reproducible abdominal pain TRAVEL OUTSIDE OF THE [place] IN LAST 30 DAYS: No - Related Data Allergies/Adverse Reactions: No Known Allergies Allergy (Verified 04/26/19 18:51) Past Medical History - Social History Smoking Status: Current Every Day Smoker Chew tobacco use (# tins/day): Yes Frequency of alcohol use: Occasional Drug Abuse: None Family History: Reviewed & Not Pertinent Patient has homicidal ideation: No Neurological Medical History: Reports: Hx Seizures - on depakote Endocrine Medical History: Denies: Hx Diabetes Mellitus Type 1, Hx Diabetes Mellitus Type 2 Renal/ Medical History: Denies: Hx Peritoneal Dialysis Infectious Medical History: Denies: Hx HIV Past Surgical History: Reports: Hx Tonsillectomy - Immunizations Immunizations up to date: Yes Hx Diphtheria, Pertussis, Tetanus Vaccination: Yes Physical Exam - Vital signs Vitals: Temp 97.8 F 04/15/20 08:38 Course - Re-evaluation Re-evalutation: 04/15/20 10:58 Patient's lab work does not show any acute abnormalities. No abdominal pain on repeat exam. Person under investigation for COVID-19, self quarantine at home pending results return if worse - Vital Signs Vital signs: Temp Pulse Resp BP Pulse Ox 98.5 F 81 18 127/76 H 98 04/15/20 08:43 04/15/20 08:43 04/15/20 08:43 04/15/20 08:43 04/15/20 08:43 - Laboratory Result Diagrams: 04/15/20 09:51 04/15/20 09:51 Laboratory results interpreted by me: 04/15/20 09:51 Plt Count 147 L Discharge - Discharge Clinical Impression: Nausea vomiting and diarrhea, Person under investigation for COVID-19 Condition: Stable Disposition: HOME, SELF-CARE Instructions: COVID-19 Guidance for Persons Under Investigation Additional Instructions: Your lab work today did not show any acute abnormalities. Take Zofran for na usea vomiting. Hydrate well at home. You are considered a person under investigation for COVID-19 at this time. Self quarantine at home pending your results which usually take 2 to 5 days. You should hear from someone at the hospital about your results. Return for any concerns or problems or worsening symptoms Prescriptions: Ondansetron [Zofran Odt 4 mg Tablet] 1 - 2 tab PO Q4H PRN #15 tab.rapdis PRN Reason: For Nausea/Vomiting Forms: Return to Work
[2020-04-15 10:05] LABS: ABSOLUTE EOSINOPHILS # (AUTO) 0.2 10^3/uL (0.0-0.6); ABSOLUTE LYMPHOCYTES (AUTO) 1.7 10^3/uL (0.5-4.7); ABSOLUTE MONOCYTES (AUTO) 0.5 10^3/uL (0.1-1.4); ABSOLUTE NEUT (AUTO) 1.7 10^3/uL (1.7-8.2); BASOPHILS % (AUTO) 0.4 % (0-2); EOSINOPHILS % (AUTO) 5.2 % (0-6); HEMATOCRIT 45.5 % (37.9-51.0); HEMOGLOBIN 15.9 g/dL (13.5-17.0); MEAN CORPUSCULAR HEMOGLOBIN 32.3 pg (27.0-33.4); MEAN CORPUSCULAR HGB CONC 34.9 g/dL (32.0-36.0); MEAN CORPUSCULAR VOLUME 93 fl (80-97); MONOCYTES % (AUTO) 11.3 % (3-13); PLATELET COUNT 147 10^3/uL (150-450); RED BLOOD COUNT 4.92 10^6/uL (4.35-5.55); RED CELL DISTRIBUTION WIDTH 12.7 % (11.5-14.0); SEGMENTED NEUTROPHILS % (AUTO) 42.1 % (42-78); TOTAL CELLS COUNTED % (AUTO) 100 %
[2020-04-15 10:28] LABS: ALBUMIN 4.8 g/dL (3.5-5.0); ALKALINE PHOSPHATASE 48 U/L (38-126); ANION GAP 7 (5-19); ASPARTATE AMINO TRANSFERASE 20 U/L (17-59); BILIRUBIN,DIRECT 0.2 mg/dL (0.0-0.4); BLOOD UREA NITROGEN 16 mg/dL (7-20); CALCIUM 9.8 mg/dL (8.4-10.2); CARBON DIOXIDE 27 mmol/L (22-30); CHLORIDE 105 mmol/L (98-107); GLUCOSE 97 mg/dL (75-110); POTASSIUM 4.3 mmol/L (3.6-5.0); TOTAL PROTEIN 7.5 g/dL (6.3-8.2)
[2020-04-15 10:33] LABS: APPEARANCE,URINE CLEAR; BILIRUBIN,URINE NEGATIVE (NEGATIVE); COLOR,URINE YELLOW; GLUCOSE, URINE NEGATIVE (NEGATIVE); KETONES,URINE NEGATIVE (NEGATIVE); LEUKOCYTE ESTERASE,URINE NEGATIVE (NEGATIVE); NITRITE,URINE NEGATIVE (NEGATIVE); PROTEIN,URINE NEGATIVE (NEGATIVE); URINE SPECIFIC GRAVITY 1.011; UROBILINOGEN,URINE NEGATIVE mg/dL (<2.0)
[2020-04-15 11:13] VITALS: BP 132/75
== END 2020-04-15 11:14 | disposition home or self-care (01) ==
LOC: ER 08:37
DX: R11.2 Nausea with vomiting, unspecified (principal); R19.7 Diarrhea, unspecified; R10.9 Unspecified abdominal pain; Z20.828 Contact with and (suspected) exposure to other viral communicable diseases; F17.200 Nicotine dependence, unspecified, uncomplicated
CPT/HCPCS: 99284; 96361; 96374; 36415; 83690; 85025; 80053; 81001; U0003; J2405; J7030; C9803; 87635

== ENCOUNTER → 2020-05-25 | Outpatient (CLI) | payer BC ==
[2020-05-25 13:44] VITALS: BP 115/63
--- NOTE | 2020-05-25 13:44 | ER [facility] ASSESSMENT REPORT ---
Intake - In the Last 14 days Have you traveled outside [place]?: No Have you been in close contact with someone CONFIRMED: Yes Worked in Healthcare?: No - Symptoms Subjective Fever([place] feverish): No Chills: No Muscule Aches: No Runny Nose: No Sore Throat: No Cough (New or worsening chronic cough): No Shortness of breath: No Nausea or Vomiting: No Headache: No Abdominal Pain: No Diarrhea(3 or more loose stools in last 24 hours): No - Do you have any of the following Chronic lung disease: Asthma or emphysema or COPD: No Cystic Fibrosis: No Diabetes: No High Blood Pressure: No Cardiovascular Disease: No Chronic Kidney Disease: No Chronic Liver Disease: No Chronic blood disorder like Sickle Cell Disease: No Weak immune system due to disease or medication: No Neurologic condition that limits movement: Yes Neurological Condition Comment: epilepsy Developmental delay - Moderate to Severe: No Recent (within past 2 weeks) or current : No Morbid Obesity (>100 pounds over ideal weight): No - Objective Temperature: 98.4 F Pulse Rate: 79 Respiratory Rate: 16 Blood Pressure: 115/63 O2 Sat by Pulse Oximetry: 97 Objective: Given above, testing performed: If Testing Performed: Test Specimen Type Sent to General - General Information source: Patient Notes: Patient presents to the [facility] for screening for the coronavirus. Patient reports recent exposure. Patient denies any symptoms at this time. - Related Data Allergies/Adverse Reactions: No Known Allergies Allergy (Verified 04/26/19 18:51) Past Medical History - General Information source: Patient - Social History Smoking Status: Current Every Day Smoker Family History: Reviewed & Not Pertinent Neurological Medical History: Reports: Hx Seizures - on depakote Endocrine Medical History: Denies: Hx Diabetes Mellitus Type 1, Hx Diabetes Mellitus Type 2 Renal/ Medical History: Denies: Hx Peritoneal Dialysis Infectious Medical History: Denies: Hx HIV Past Surgical History: Reports: Hx Tonsillectomy Physical Exam - Notes Notes: The patient was evaluated during the global Covid 19 pandemic, and that diagnosis was suspected/considered upon their initial presentation. Their evaluation, treatment and testing was consistent with current guidelines for patients who present with complaints or symptoms that may be related to Covid 19. Full physical exam could not be performed due to covid 19 isolation protocols. Constitutional: Nontoxic appearance, no acute distress Eyes: Nonicteric, extraocular movements intact, sclera clear Cardiovascular: Heart rate and rhythm regular, no JVD Respiratory: Breath sounds clear bilaterally, nonlabored breathing, no use of accessory muscles, no tachypnea Gastrointestinal: Abdomen not distended Muculoskeletal: Moves all extremities well Skin: Normal color Neuro: Awake alert oriented, normal speech Psych: Normal mood and affect Diagnostic Results Laboratory Results: Patient presents with exposure worrisome for possible Covid 19. Patient does not have emergency worrying symptoms such as difficulty breathing, shortness of breath, chest pain, pressure, confusion or cyanosis. Patient appears suitable for discharge as they are not of an advanced age, do not have any chronic medical conditions such as diabetes, CAD, immune deficiency, chronic lung disease or chronic kidney disease. Patient's vital signs are stable and patient is nontoxic in appearance. Good return precautions have been discussed with patient, patient verbalized understanding and is agreeable with discharge plan of care at this time. Patient Education/Counseling Counseling/Education: Patient was provided with discharge information including: As a person under investigation for Covid 19, the [facility], division of public health advises you to adhere to the following guidance until your test results are reported to you. If your test result is positive, you will receive additional information from your provider and your local health department at that time. Remain at home until you are cleared by the health provider or public health authorities. Keep a log of visitors to your home, notify any visitors to your home of your isolation status. If you plan to move to a new address or leave the [facility], notify the local health department in your County. Call your doctor or seek care if you have an urgent medical need. Before seeking medical care, call ahead to get instructions from the provider before arriving at the medical office clinic or hospital. Notify them that you are being tested for the virus that causes Covid 19 so that arrangements can be made, as necessary, to prevent transmission to others in the healthcare setting. Next, notify the local health department in your county. If a medical emergency arises and you need to call 911, inform the first responders that you are being tested for the virus that causes Covid 19. Next, notify the local health department in your county. [facility] Discharge - Discharge Clinical Impression: Encounter for screening laboratory testing for COVID-19 virus in asymptomatic patient Condition: Stable Disposition: Home; Selfcare
== END ==
LOC: RDC 13:11
PROVIDERS: ATTEND Nurse Practitioner Family
DX: Z03.818 Encounter for observation for suspected exposure to other biological agents ruled out (principal)
CPT/HCPCS: U0003; C9803; 87635